=== PATIENT | female | born 1990 | race Caucasian/White ===

== ENCOUNTER 2017-02-11 20:40 | Inpatient (IN) | payer MEDICAID ==
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
[2017-02-14] MEDS ORDERED: MOTRIN-DPS800 MG PO (13:55)
[2017-02-14] MEDS ORDERED: ZOLOFT DPS25 MG PO (13:55)
[2017-02-14] MEDS ORDERED: PERCOCET 5 DPS1 TAB PO (13:55)
[2017-02-14] MEDS ORDERED: PRENATAL VIT1 TAB PO (13:55)
[2017-02-14] MEDS ORDERED: COLACE-DPS100 MG PO (13:56)
[2017-02-14] MEDS ORDERED: NIPPLECREAM TP (13:56)
[2017-02-14] MEDS ORDERED: FEOSOL-DPS325 MG PO (13:56)
[2017-02-14] MEDS ORDERED: LAN-O-SOOTHE7 GM TP (13:56)
--- NOTE | 2017-02-22 09:19 | OR ---
ADMIT: 02/11/2017 RM/LOC: 218 [facility] MR#: [id number] [address] [address] JANE BONNER [address] [place] [address] Operative/Delivery Room Report SEX: F AGE: 26 : 1990 SURGERY DATE: 02/11/2017 SURGEON: Christine Dupont MD NAME OF PROCEDURE: Primary low transverse section. FINISHED CLOTH CHECKER: Socorro Moreira MD PREOPERATIVE DIAGNOSES: 1. Intrauterine at 39 and 6/7th weeks' gestation. 2. Breech presentation. 3. Active labor. POSTOPERATIVE DIAGNOSES: 1. Intrauterine at 39 and 6/7th weeks' gestation. 2. Breech presentation. 3. Active labor. FINDINGS: 1. Liveborn female . scores 8 at 1 minute, 9 at 5 minutes. Weight 9 pounds 3 ounces. 2. Normal-appearing uterus, tubes, and ovaries bilaterally. 3. Meconium stained fluid. ESTIMATED BLOOD LOSS: 500 mL. ANESTHESIA: Spinal. COMPLICATIONS: None. INDICATIONS FOR PROCEDURE: The patient is a 26-year-old, 4, para 3-0- 0-3, who presented to Labor and Delivery with complaints of painful contractions. The patient had been previously noted to have the infant in breech presentation and had been scheduled for primary section on 02/12/2017. The patient presented and was noted to be in active labor and breech presentation, so decision was made to proceed with primary section. Risks, benefits, and alternatives of surgery have been previously discussed with the patient, and she wished to proceed. DESCRIPTION OF PROCEDURE: The patient was taken to the operating room where spinal anesthesia was obtained without difficulty. The patient was placed in dorsal supine position in leftward tilt and prepped and draped in the usual sterile fashion. A Pfannenstiel incision was made over the patient's previous abdominoplasty scar. The fascia was nicked in the midline. This incision was extended bilaterally with Ordonez scissors. Superior aspect of the fascial incision was grasped with Unruly clamps, elevated, and the underlying rectus muscles were dissected off with Ordonez scissors and bluntly. In a similar fashion, inferior aspect of the fascial incision was grasped with Unruly clamps, elevated, and the underlying rectus muscles were dissected off bluntly ADMIT: 02/11/2017 RM/LOC: 218 [facility] MR#: [id number] [address] [address] [address] BONNER [address] [place] [address] Operative/Delivery Room Report SEX: F AGE: 26 : 1990 with Ordonez scissors. Perineum was entered bluntly and this incision was extended bluntly as well. The bladder blade was then placed. The vesicouterine peritoneum was identified and entered sharply with Metzenbaum scissors. This incision was extended bilaterally, and a bladder flap was created digitally. Bladder blade was then replaced. The lower uterine segment was incised with a scalpel. Meconium-stained fluid was noted at the amniotomy. The uterine incision was extended. The 's right foot was noted to be presenting part. The was brought to were the breech was presenting, and a breech was delivered without difficulty. Both legs were extended, and the infant was delivered to the level of the shoulders. The infant's head was flexed and the head delivered without difficulty. The was dried. The cord was clamped and cut, and the was handed off to the warmer where nursing personnel were in attendance. The placenta then delivered intact. Twenty units of Pitocin were placed in the IV bag to firm the uterus. The uterus was exteriorized and cleared of all clots and debris. The uterine incision was closed in a running locked fashion using 0 Vicryl. One additional [id number] stitch was used for hemostasis of the uterine incision. The uterus was then replaced into the abdominal cavity. The gutters were checked and cleared of all clots and debris. The uterine incision was again examined and was noted be hemostatic. The muscles and fascia were made hemostatic with electrocautery. The fascial incision was closed in a running fashion using 0 Vicryl. The subcutaneous layer was brought together using 2 layers of 2-0 plain gut in an interrupted fashion. The skin incision was closed with subcuticular stapler. The patient tolerated the procedure well. All sponge and needle counts were correct. The patient and infant went to the room in stable condition. Christine Dupont MD/ raj JOB #: [id number] CC: Christine Dupont, Attending Physician Renée Raines, Family Physician
--- NOTE | 2017-04-08 07:25 | DS ---
ADMIT: 02/11/2017 RM/LOC: [address] [facility] MR#: [id number] [id number] [place], [place] [address] JANE BONNER [address] [address] General Discharge Summary SEX: F AGE: 26 : 1990 ADMISSION DATE: 02/11/2017 DISCHARGE DATE: 02/13/2017 ADMISSION DIAGNOSES: 1. Active labor. 2. Breech presentation. DISCHARGE DIAGNOSES: 1. Active labor. 2. Breech presentation. PROCEDURES PERFORMED: Primary section, performed on 02/11/2017 with delivery of liveborn female , scores 8 at 1 minute and 9 at 5 minutes, and weight 9 pounds 3 ounces. INDICATIONS FOR HOSPITALIZATION: The patient is a 26-year-old 4 para 3-0-0-3, who presented to Labor and Delivery with complaints of painful contractions. The patient was noted to have cervical change and was noted to be in active labor. It was previously known that the was in the breech presentation and due to breech presentation and active labor, decision was made to proceed with primary section. HOSPITAL COURSE: The patient underwent the above-named procedure on 02/11/2017. Postoperatively, the patient did well. On postoperative day #1, the patient's pain was controlled, she was breast feeding without difficulty, blood pressures were in the 110s to 140s over 70s to 80s, and postoperative hemoglobin was 9.1 which was down from 10.3 preoperatively. By postoperative day #2, the patient was doing well. She was deemed stable for discharge on postoperative day #2. DISCHARGE INSTRUCTIONS: The patient is to be discharged to home. She is to continue: 1. Feosol one 325 mg twice daily. 2. Motrin and Percocet as needed for pain control. 3. She is also to continue home Zoloft 25 mg daily. She is to follow up in the clinic in 2 weeks for an incision check and 6 weeks for postoperative check. FINAL DISPOSITION: The patient is to home. CONDITION ON DISCHARGE: Stable. Christine Dupont MD/ raj JOB #: [id number] CC: Christine Dupont MD, Attending Physician ADMIT: 02/11/2017 RM/LOC: 218 [facility] MR#: [id number] [address] [address] JANE BON[address] [place] [address] General Discharge Summary SEX: F AGE: 26 : 1990 Renée Raines MD, Family Physician
== END 2017-02-13 14:40 | disposition home or self-care (01) | DRG 766 ==
LOC: BC 20:40 → 2LDRP 20:40 → BC 02-15 08:00
PROVIDERS: ADMIT Obstetrics & Gynecology
PROC: 10D00Z1 Extraction of Products of Conception, Low, Open Approach (ICD-10-PCS; principal; 2017-02-11)
DX: O32.1XX0 Maternal care for breech presentation, not applicable or unspecified (principal); D64.9 Anemia, unspecified; O99.02 Anemia complicating childbirth; O77.0 Labor and delivery complicated by meconium in amniotic fluid; Z86.718 Personal history of other venous thrombosis and embolism; Z87.820 Personal history of traumatic brain injury; Z3A.39 39 weeks gestation of pregnancy; Z37.0 Single live birth

== ENCOUNTER 2017-02-18 16:00 | Emergency (ER) | payer MEDICAID ==
[~2017-02-18 16:00] MED LIST: COLACE-DPS100 MG PO; FEOSOL-DPS325 MG PO; LAN-O-SOOTHE7 GM TP; MOTRIN-DPS800 MG PO; NIPPLECREAM TP; PERCOCET 5 DPS1 TAB PO; PRENATAL VIT1 TAB PO; ZOLOFT DPS25 MG PO
--- NOTE | 2017-02-27 15:17 | ER ---
ADMIT: 02/18/2017 RM/LOC: ER [facility] MR#: [id number] [address] [address] JANE BONNER [address] [place] [address] Emergency Room Report SEX: F AGE: 26 : 1990 DATE: 02/18/2017 ADDENDUM: This patient comes to the ER because she recently had a and today a little bit of that incision dehiscence. She had quite a bit of drainage coming from that small area. She denies any pain and just wanted to make sure she did not have an infection. On physical exam, she is alert. Her abdomen is soft, nontender to palpation. It is a small area about a quarter cm in length. It dehisced, but the incision site looks well. There is no redness or swelling or abnormal drainage. We will have her follow up with her primary as needed, and we did explain signs and symptoms of infection that she should be worried about. Please see my T-sheet. PAOLA Knight / Last Zavala MD / raj JOB #: [id number] CC: Last Zavala MD, Attending Physician Christine Dupont MD, Family Physician
== END 2017-02-18 16:35 | disposition home or self-care (01) ==
LOC: ER 16:00
DX: T81.31XA Disruption of external operation (surgical) wound, not elsewhere classified, initial encounter (principal); Z86.718 Personal history of other venous thrombosis and embolism; Z79.01 Long term (current) use of anticoagulants; Z79.899 Other long term (current) drug therapy

== ENCOUNTER 2017-03-16 11:44 | Day surgery (SDC) | payer MEDICAID ==
[~2017-03-16] VITALS: Ht 167.6 cm; Wt 90.9 kg
== END 2017-03-16 17:04 | disposition home or self-care (01) ==
LOC: RAD.S 11:44
PROC: 0W9F3ZZ Drainage of Abdominal Wall, Percutaneous Approach (ICD-10-PCS; principal; 2017-03-16)
DX: O86.0 Infection of obstetric surgical wound (principal); L02.211 Cutaneous abscess of abdominal wall; Z79.2 Long term (current) use of antibiotics; Z79.899 Other long term (current) drug therapy

== ENCOUNTER → 2017-04-22 | Outpatient (CLI) | payer MEDICAID | END | disposition home or self-care (01) | LOC: RAD.S 14:30 | DX: T81.4XXD Infection following a procedure, subsequent encounter (principal); Z97.5 Presence of (intrauterine) contraceptive device ==